=== PATIENT | male | born 1970 | race African-American/Black ===

== ENCOUNTER 2024-01-28 13:43 | Inpatient (IN) | payer OTHER ==
[2024-01-28 14:26] VITALS: BMI 19.8
[2024-01-28] MEDS ORDERED: cloNIDine HCL 0.1 MG TABLET PO ONE (15:15)
[2024-01-28] MEDS ORDERED: POLYETHYLENE GLYCOL (HEALTHYLAX) 3350 17 GM PACKET PO PRN (15:15)
[2024-01-28] MEDS ORDERED: BENZOCAINE/MENTHOL (CHLORASEPTIC ) LOZENGE MM PRN (15:15)
[2024-01-28] MEDS ORDERED: IBUPROFEN 400 MG TABLET (FP) PO PRN (15:15)
[2024-01-28] MEDS ORDERED: LOPERAMIDE HCL 2 MG CAPSULE PO PRN (15:15)
[2024-01-28] MEDS ORDERED: BENZONATATE 200 MG CAPSULE PO PRN (15:15)
[2024-01-28] MEDS ORDERED: hydrOXYzine PAMOATE 25 MG CAPSULE (FP) PO PRN (15:15)
[2024-01-28] MEDS ORDERED: DICYCLOMINE HCL 10 MG CAPSULE PO PRN (15:15)
[2024-01-28] MEDS ORDERED: NALOXONE HCL 0.4 MG/ML VIAL IM PRN (15:15)
[2024-01-28] MEDS ORDERED: guaiFENesin 600 MG TABLET.ER (FP) PO PRN (15:15)
[2024-01-28] MEDS ORDERED: BISMUTH SUBSALICYLATE 524 MG/30 ML PO PRN (15:15)
[2024-01-28] MEDS ORDERED: ONDANSETRON *ODT* 4 MG TABLET SL PRN (15:15)
[2024-01-28] MEDS ORDERED: NALOXONE (NARCAN) HCL 4 MG/0.1 ML SPRAY NS PRN (15:15)
[2024-01-28] MEDS ORDERED: MAG HYDROX/AL HYDROX/SIMETH 30 ML UNIT-DOSE CUP PO PRN (15:15)
[2024-01-28] MEDS ORDERED: BUPRENORPHINE HCL 150 MCG, BUPRENORPHINE HCL 75 MCG BC ONE (15:15)
[2024-01-28] MEDS ORDERED: MAGNESIUM HYDROX 2400MG/30ML ORAL SUSPENSION 30 ML CUP PO PRN (15:15)
[2024-01-28] MEDS ORDERED: BUPRENORPHINE HCL 150 MCG, BUPRENORPHINE HCL 75 MCG BC PRN (15:15)
[2024-01-28] MEDS: BUPRENORPHINE HCL 150 MCG, BUPRENORPHINE HCL 75 MCG BC ONE (17:54)
[2024-01-28] MEDS: cloNIDine HCL 0.1 MG TABLET PO ONE (17:56)
[2024-01-28] MEDS: IBUPROFEN 600 MG TABLET (FP) PO PRN (17:57)
[2024-01-28] MEDS ORDERED: cloNIDine HCL 0.1 MG TABLET PO PRN (19:17)
[2024-01-28] MEDS: THIAMINE 100 MG TABLET PO SCH (22:39)
[2024-01-28] MEDS: MELATONIN 5 MG TABLETS PO SCH (22:39)
[2024-01-29] MEDS ORDERED: BUPRENORPHINE HCL 150 MCG, BUPRENORPHINE HCL 75 MCG BC PRN
[2024-01-29] MEDS: BUPRENORPHINE HCL 150 MCG, BUPRENORPHINE HCL 75 MCG BC SCH (06:40)
[2024-01-29] MEDS: PRENATAL VITAMINS W/ FOLIC ACID TABLET (FP) PO SCH (09:19)
[2024-01-29 12:11] LABS: HEMATOCRIT 47.6 % (35.4-49); MCH 29.2 pg (25.7-33.7); MCHC 33.6 g/dl (32.0-35.9); MEAN CELL VOLUME 86.9 fl (80-96); MEAN PLT VOLUME 8.6 fl (7.5-11.1); PLATELET COUNT 309 10^3/uL (134-434); RBC 5.47 M/mm3 (4.00-5.60); RDW 13.8 % (11.9-15.9)
[2024-01-29 13:12] LABS: CHLORIDE 104 mmol/L (98-107); SODIUM 142 mmol/L (136-145)
[2024-01-29 13:13] LABS: ANION GAP 9 mmol/L (4-13); BLOOD UREA NITROGEN 15.4 mg/dL (7-18); CALCIUM 9.6 mg/dL (8.5-10.1); CO2 30 mmol/L (21-32); GLUCOSE,RANDOM 55 mg/dL (74-106)
[2024-01-29 13:15] LABS: ALBUMIN 3.9 g/dl (3.4-5.0)
[2024-01-29 13:16] LABS: CREATININE 1.1 mg/dL (0.55-1.3)
[2024-01-29 13:17] LABS: SGOT/AST 22 U/L (15-37)
[2024-01-29 13:18] LABS: SGPT/ALT 23 U/L (13-61); TOT PROT 7.2 g/dl (6.4-8.2)
[2024-01-29 13:20] LABS: ALK PHOS 103 U/L (45-117)
[2024-01-30] MEDS: BUPRENORPHINE HCL 450 MCG FILM BC SCH (05:40)
[2024-01-30] MEDS: diazePAM 5 MG TABLET PO PRN (10:13)
[2024-01-30] MEDS: ACETAMINOPHEN 325 MG TABLET (FP) PO PRN (21:57)
[2024-01-30] MEDS: METHOCARBAMOL 500 MG TABLET PO PRN (22:00)
[2024-01-31] MEDS: BUPRENORPHINE/NALOXONE 4 MG/1 MG FILM PACKET SL SCH (05:27)
[2024-02-01 06:15] VITALS: RESP 16
[2024-02-01] MEDS: BUPRENORPHINE/NALOXONE 8 MG/2 MG FILM PACKET SL ONE (06:19)
[2024-02-01 08:59] VITALS: BP 114/67; PULSE 62; TEMP 97.7
== END 2024-02-01 12:01 | disposition home or self-care (01) | DRG 773 ==
LOC: YASAS 13:43 → Y6N 17:19
PROVIDERS: ADMIT Allergy & Immunology; ATTEND Surgery
PROC: HZ2ZZZZ Detoxification Services for Substance Abuse Treatment (ICD-10-PCS; principal; 2024-01-28)
DX: F11.23 Opioid dependence with withdrawal (principal); F17.210 Nicotine dependence, cigarettes, uncomplicated; G47.00 Insomnia, unspecified; K08.89 Other specified disorders of teeth and supporting structures; Z56.0 Unemployment, unspecified; Z59.00 Homelessness unspecified
CPT/HCPCS: 36415; 80053; 80305; 80307; 85027; 86780; 93005; 93010